=== PATIENT | female | born 1980 | race Two or more races ===

== ENCOUNTER 2022-03-01 04:16 | Emergency (ER) | payer OTHER ==
[~2022-03-01] VITALS: Ht 162.6 cm; Wt 81.8 kg
[2022-03-01] MEDS ORDERED: KETOROLAC 60MG 2ML VIAL IM ONE (04:50)
[2022-03-01] MEDS ORDERED: ONDA4TAB6 PO (06:55)
[2022-03-01] MEDS ORDERED: CEFD300C41 PO (06:55)
[2022-03-01] MEDS ORDERED: KETO10TAB PO (06:55)
[2022-03-01 07:04] VITALS: BP 110/64
== END 2022-03-01 07:52 | disposition home or self-care (01) ==
LOC: M ED 04:16
DX: N23 Unspecified renal colic (principal); Z79.899 Other long term (current) drug therapy
CPT/HCPCS: 74176; 81000; 81015; 87086; 96372; 99283; J1885

== ENCOUNTER → 2023-12-27 | Outpatient (CLI) | payer OTHER ==
[~2023-12-27] MED LIST: CEFD1CAP9 PO; KETO10TAB PO; ONDA-282 PO
== END ==
LOC: M WHC 15:06
PROVIDERS: ATTEND Nurse Practitioner Primary Care
DX: Z12.31 Encounter for screening mammogram for malignant neoplasm of breast (principal); N63.22 Unspecified lump in the left breast, upper inner quadrant

== ENCOUNTER → 2024-01-11 | Outpatient (CLI) | payer OTHER | LOC: M WHC 08:48 | PROVIDERS: ATTEND Nurse Practitioner Primary Care | DX: Z12.31 Encounter for screening mammogram for malignant neoplasm of breast (principal) | CPT/HCPCS: 77065; G0279 ==

== ENCOUNTER → 2024-03-14 | Outpatient (CLI) | payer OTHER | LOC: M CARPUL 13:45 | PROVIDERS: ATTEND Internal Medicine | DX: J45.909 Unspecified asthma, uncomplicated (principal) ==

== ENCOUNTER 2024-10-02 10:26 | Day surgery (SDC) | payer OTHER ==
[~2024-10-02] VITALS: Ht 162.6 cm; Wt 77.6 kg
[~2024-10-02 10:26] MED LIST changes: +ALBU8.5H; +FERR325T19 PO; +FEXO-63 PO; +LORA-930 PO; +METF500T13 PO; +PHEN30CA21 PO; +VITA100093 PO; +VITA500T9 PO
[2024-10-02] MEDS ORDERED: LR 1,000 ML IV SCH (10:45)
[2024-10-02 11:02] LABS: HEMATOCRIT 44.9 % (36.0-47.0); HEMOGLOBIN 14.7 g/dl (12.0-15.5); MEAN CORPUSCULAR HEMOGLOBIN 27.3 pg (27.0-33.0); MEAN CORPUSCULAR HGB CONC 32.7 g/dl (32.0-36.5); MEAN CORPUSCULAR VOLUME 83.5 fl (80.0-96.0); PLATELET COUNT, AUTOMATED 379 10^3/uL (150-450); RED BLOOD COUNT 5.38 10^6/uL (4.00-5.40); WHITE BLOOD COUNT 5.9 10^3/uL (4.0-10.0)
[2024-10-02] MEDS: SCOPOLAMINE 1MG TRANSDERMAL PATCH TOP ONE (11:17)
[2024-10-02] MEDS: ACETAMINOPHEN 500 MG TAB PO ONE (11:17)
[2024-10-02] MEDS ORDERED: fentaNYL 100 MCG/2 ML INJECTION As Ordered ONE (11:45)
[2024-10-02] MEDS ORDERED: MIDAZOLAM INJ 2MG/2ML VIAL As Ordered ONE (11:45)
[2024-10-02] MEDS ORDERED: ONDANSETRON 4MG 2ML VIAL As Ordered ONE (11:45)
[2024-10-02] MEDS ORDERED: LIDOCAINE 2% 100MG/5ML SDV (FOR ANES.) As Ordered ONE (11:45)
[2024-10-02] MEDS ORDERED: propofoL 200 MG/20 ML VIAL As Ordered ONE (11:45)
[2024-10-02] MEDS ORDERED: dexmedeTOMIDine (4MCG/ML)200MCG/50ML BTL (PRECEDEX) As Ordered ONE (11:46)
[2024-10-02] MEDS ORDERED: KETOROLAC 30 MG/ML 1ML VIAL As Ordered ONE (11:50)
[2024-10-02] MEDS: LIDOCAINE 1% SDV 30ML VIAL As Ordered ONE (13:11)
[2024-10-02] MEDS: SILVER NITRATE APPLICATOR (1 = QTY 10) As Ordered ONE (13:15)
[2024-10-02] MEDS ORDERED: ONDANSETRON 4MG 2ML VIAL IV PRN (13:25)
[2024-10-02] MEDS ORDERED: oxyCODONE 5MG TAB PO PRN (13:25)
[2024-10-02] MEDS ORDERED: fentaNYL 100 MCG/2 ML INJECTION IV PRN (13:25)
[2024-10-02 14:05] VITALS: BP 131/67; TEMP 96.8; O2SAT 99
== END 2024-10-02 14:34 | disposition home or self-care (01) ==
LOC: M SDC 10:26
PROVIDERS: ATTEND Student in an Organized Health Care Education/Training Program
DX: N84.0 Polyp of corpus uteri (principal); R73.03 Prediabetes; K21.9 Gastro-esophageal reflux disease without esophagitis; Z79.899 Other long term (current) drug therapy; J45.909 Unspecified asthma, uncomplicated; Z79.84 Long term (current) use of oral hypoglycemic drugs; Z79.51 Long term (current) use of inhaled steroids
CPT/HCPCS: 36415; 58558; 81025; 85027; 86850; 86900; 86901; 88305; J1100; J1885; J2250; J2405; J3010